=== PATIENT | female | born 1970 | race Two or more races ===

== ENCOUNTER 2019-08-10 13:02 | Observation (INO) | payer SELFPAY ==
--- NOTE | 2019-08-10 13:20 | ED ---
Abdominal Pain/Female - HPI Summary HPI Summary: Patient is a 49 y/o F presenting to the ED for a chief complaint of left flank pain that radiates to the lower back. Patient is present with her daughter. Patient reports that the left flank pain began around 17:00 on 08/09/19. She rates her flank pain as 10/10 in severity. For the last 3 days, she also notes hematuria. Patient complains of nausea and believes she has had a fever. Any aggravating or alleviating factors are denied. Patient admits tobacco and alcohol use, but denies drug use. PMHx is significant for nephrolithiasis, but she denies a history of hypertension, hypercholesterolemia, or diabetes mellitus. PSHx is significant for appendectomy at which time she was told she had nephrolithiasis, but she is unsure how large the stone was at that time. FMHx is significant for hypertension and diabetes mellitus. She denies taking any medications. Allergies noted. - History of Current Complaint Chief Complaint: EDFlankPain Stated Complaint: BACK PAIN/CHILLS/VOMITING PER PT DAUGHTER Time Seen by Provider: 08/10/19 13:18 Hx Obtained From: Patient Onset/Duration: Sudden Onset, Lasting Hours, Still Present Timing: Constant Severity Initially: Severe Severity Currently: Severe Pain Intensity: 10 Pain Scale Used: 0-10 Numeric Location: Flank - Left Radiates: Yes Radiates to: Back - Lower Aggravating Factor(s): Nothing Alleviating Factor(s): Nothing Associated Signs and Symptoms: Positive: Fever - In vitals, 97.8 F, Back Pain - Lower that radiates from the left flank, Urinary Symptoms - Positive hematuria, Nausea Allergies/Adverse Reactions: Allergies Allergy/AdvReac Type Severity Reaction Status Date / Time No Known Allergies Allergy Verified 08/10/19 13:06 Home Medications: Home Medications NK [No Home Medications Reported] 08/10/19 [History Confirmed 08/10/19] PMH/Surg Hx/FS Hx/Imm Hx Previously Healthy: Yes Endocrine/Hematology History: Denies: Hx Diabetes Cardiovascular History: Denies: Hx Hypercholesterolemia, Hx Hypertension History: Reports: Hx Kidney Stones Sensory History: Denies: Hx Legally Blind, Hx Deafness Opthamlomology History: Denies: Hx Legally Blind EENT History: Denies: Hx Deafness - Surgical History Surgical History: Yes Surgery Procedure, Year, and Place: Appendectomy Infectious Disease History: No Infectious Disease History: Denies: Traveled Outside the [place] in Last 30 Days - Family History Known Family History: Positive: Hypertension, Diabetes - Social History Occupation: Unemployed Alcohol Use: Occasionally Hx Substance Use: No Substance Use Type: Reports: None Hx Tobacco Use: Yes Smoking Status (MU): Light Every Day Tobacco Smoker Type: Cigarettes Review of Systems Positive: Fever - In vitals, 97.8 F Positive: Abdominal Pain - Left flank, Nausea Positive: flank pain - Left, hematuria Positive: Myalgia - Lower back that radiates from the left flank All Other Systems Reviewed And Are Negative: Yes Physical Exam - Summary Physical Exam Summary: VITAL SIGNS: Reviewed. GENERAL: Patient is a well-developed and nourished female who is lying comfortable in the stretcher. Patient is not in any acute respiratory distress. HEAD AND FACE: Normocephalic and atraumatic. EYES: PERRLA, EOMI x 2, No injected conjunctiva. EARS: Hearing grossly intact. Ear canals and tympanic membranes are WNL. MOUTH: Oropharynx within normal limits. NECK: Supple, trachea is midline, no adenopathy, no JVD. CHEST: Symmetric, no tenderness at palpation. LUNGS: Clear to auscultation bilaterally. No wheezing or crackles. CVS: RRR, S1 and S2 present, no murmurs or gallops appreciated. ABDOMEN: Soft. No signs of distention. Positive bowel sounds. No rebound, no guarding, and no masses palpated. No abdominal bruit or pulsations.Left flank tenderness, CVA tenderness. EXTREMITIES: FROM in all major joints, no edema, no cyanosis or clubbing. NEURO: Alert and oriented x 3. No acute neurological deficits. Speech is normal. SKIN: Dry and warm. Triage Information Reviewed: Yes Vital Signs On Initial Exam: Initial Vitals Temp Pulse Resp BP Pulse Ox 97.8 F 77 16 130/99 99 08/10/19 13:03 08/10/19 13:03 08/10/19 13:03 08/10/19 13:03 08/10/19 13:03 Vital Signs Reviewed: Yes Procedures - Sedation Patient Received Moderate/Deep Sedation with Procedure: No Diagnostics - Vital Signs Vital Signs Temp Pulse Resp BP Pulse Ox 08/10/19 13:03 97.8 F 77 16 130/99 99 - Laboratory Result Diagrams: 08/10/19 14:07 08/10/19 14:07 Lab Statement: Any lab studies that have been ordered have been reviewed, and results considered in the medical decision making process. - Radiology Abdomen X-ray Radiology Interpretation Completed By: Radiologist Summary of Radiographic Findings: Abdomen X-ray IMPRESSION: Calculi overlying the left renal hilum. This is similar to that identified on recent CT. Reviewed by Dr. Petersen. - CT Abdomen/Pelvis CT CT Interpretation Completed By: Radiologist Summary of CT Findings: Abdomen/Pelvis CT IMPRESSION: Calculi in the left ureteropelvic junction measuring 0.8 x 0.9 cm with moderate left hydronephrosis. Right kidney shows no hydronephrosis. Reviewed by Dr. Petersen. Re-Evaluation - Re-Evaluation First Eval Re-Evaluation Time: 16:06 Change: Improved Comment: At 16:06, patient is feeling better and rates her current pain as 4-5/ 10 in severity. Abdominal Pain Fem Course/Dx - Course Course Of Treatment: Patient is a 49 y/o F presenting to the ED for a chief complaint of left flank pain that radiates to the lower back. Patient is present with her daughter. Patient reports that the left flank pain began around 17:00 on 08/09/19. She rates her flank pain as 10/10 in severity. For the last 3 days, she also notes hematuria. Patient complains of nausea and believes she has had a fever. Any aggravating or alleviating factors are denied. Patient admits tobacco and alcohol use, but denies drug use. PMHx is significant for nephrolithiasis, but she denies a history of hypertension, hypercholesterolemia, or diabetes mellitus. PSHx is significant for appendectomy at which time she was told she had nephrolithiasis, but she is unsure how large the stone was at that time. FMHx is significant for hypertension and diabetes mellitus. She denies taking any medications. Allergies noted. Blood work is without any significant abnormality except for glucose of 114, total protein of 6.3 and urinalysis is negative for UTI. Abdominal pelvic CT impression: Calculi in the left uteropelvic junction measuring 0.80.9 cm with moderate left hydronephrosis. The right kidney shows no hydronephrosis. In the ED course the patient was given IV fluids, Toradol for the pain, and 2 doses of morphine. The pain is still present. I discussed my physical exam findings and test results with Dr. Gordillo from and he stated he would consult with the patient. I discussed my physical exam findings and test results with Dr. Fang from the hospital services, and she will admit the patient to her services for further workup and management. The patient is hemodynamically stable, and alert and oriented 3. The patient will not be eating by mouth after midnight. - Diagnoses Provider Diagnoses: Renal colic, Nephrolithiasis - Provider Notifications Discussed Care Of Patient With: Arcaeli Fang - At 17:25, Dr. Araceli Fang reviewed the patients case and agrees to admit the patient to [facility]. Time Discussed With Above Provider: 17:25 Instructed by Provider To: Admit As Inpatient Discharge ED - Sign-Out/Discharge Documenting (check all that apply): Patient Departure - Admit - Discharge Plan Condition: Stable Disposition: ADMITTED TO [facility] Referrals: Care [facility] [Outside] - Billing Disposition and Condition Condition: STABLE Disposition: Admitted to [facility] - Attestation Statements Document Initiated by Scribe: Yes Documenting Scribe: Marifer Edmonds Provider For Whom Scribe is Documenting (Include Credential): Himanshu Petersen MD Scribe Attestation: IMarifer, scribed for Himanshu Petersen MD on 08/10/19 at 1823. Scribe Documentation Reviewed: Yes Provider Attestation: The documentation as recorded by the Marifer rolon accurately reflects the service I personally performed and the decisions made by me, Himanshu Petersen MD Status of Scribe Document: Viewed
[2019-08-10] MEDS ORDERED: Ketorolac INJ* 30 MG/ML 1 ML VIAL IV ONE (13:29)
[2019-08-10] MEDS ORDERED: NS 0.9% 1000 ML** 1,000 ML IV ONE (13:29)
[2019-08-10] MEDS ORDERED: Ondansetron INJ* 2 MG/ML VIAL IV ONE (13:29)
[2019-08-10 14:15] LABS: ABS Basophils 0.1 10^3/ul (0-0.2); ABS Lymphocytes 1.1 10^3/ul (1.0-4.8); ABS Monocytes 0.4 10^3/ul (0-0.8); ABS Neutrophils 7.7 10^3/ul (1.5-7.7); Eosinophil % 0.5 %; Hematocrit 40 % (35-47); Hemoglobin 13.6 g/dL (12.0-16.0); Lymphocyte % 11.9 %; Mean Corpuscular HGB Conc 34 g/dL (31-36); Mean Corpuscular Hemoglobin 30 pg (27-31); Mean Corpuscular Volume 90 fL (80-97); Mean Platelet Volume 9.4 fL (7.4-10.4); Platelet Count 234 10^3/uL (150-450); Red Cell Distribution Width 14 % (10-15); White Blood Count 9.4 10^3/uL (3.5-10.8)
[2019-08-10] MEDS ORDERED: Morphine 4 MG/ML VIAL (1 ml) 4 MG/ML VIAL IV ONE ×2 (14:26→16:06)
[2019-08-10 14:32] LABS: Albumin 3.9 g/dL (3.2-5.2); Albumin/Globulin Ratio 1.6 (1-3); BUN/Creatinine Ratio 29.9 (8-20); C Reactive Protein 1.48 mg/L (<8.01); Calcium 8.8 mg/dL (8.6-10.3); EGFR African American 96.8 (>60); Globulin 2.4 g/dL (2-4); Potassium 3.9 mmol/L (3.5-5.0); Total Bilirubin 0.4 mg/dL (0.2-1.0); Total Protein 6.3 g/dL (6.4-8.9)
[2019-08-10 14:43] LABS: Urine Appearance Turbid; Urine Bilirubin Negative (Negative); Urine Blood 2+ (Negative); Urine Color Yellow; Urine Glucose Negative (Negative); Urine Ketones Negative (Negative); Urine Nitrite Negative (Negative); Urine Protein Negative (Negative); Urine Specific Gravity 1.016 (1.010-1.030); Urine Urobilinogen Negative (Negative)
[2019-08-10 14:49] LABS: Urine Bacteria Absent (Absent); Urine Red Blood Cell 3+(>10/hpf) (Absent); Urine Squamous Epithelial Cell Present (Absent); Urine White Blood Cell Trace(0-5/hpf) (Absent)
[2019-08-10] MEDS ORDERED: Acetaminophen TAB* 325 MG PO PRN (18:07)
[2019-08-10] MEDS ORDERED: Senna TAB 8.6 mg* TAB PO PRN (18:07)
[2019-08-10] MEDS ORDERED: Morphine INJ* 2 MG/ML 1 ML SYRINGE (TWO MG - NEW SYRINGE VERSION) IV PRN (18:07)
[2019-08-10] MEDS ORDERED: Al Hydrox/Mg Hydrox/Simet LIQ* 30 ML UDC PO PRN (18:07)
[2019-08-10] MEDS ORDERED: oxyCODONE/Acetamin 5/325 MG* TAB PO PRN (18:07)
[2019-08-10] MEDS ORDERED: Ketorolac INJ* 30 MG/ML 1 ML VIAL IV PUSH PRN (18:14)
[2019-08-10] MEDS ORDERED: cefTRIAXone(*) 1 GM in NS 0.9% 50 ML* 50 ML IVPB STA (18:33)
[2019-08-10] MEDS: Tamsulosin CAP* 0.4 MG PO SCH (19:12)
[2019-08-10] MEDS: NS 0.9% 1000 ML** 1,000 ML IV SCH (20:25)
--- NOTE | 2019-08-10 20:51 | HP ---
HISTORY AND PHYSICAL: DATE OF ADMISSION: 08/10/19 ATTENDING PHYSICIAN: Dr. Angel.* (DICTATED BY MARY GRACE FIELDS) PRIMARY CARE PROVIDER: None. CHIEF COMPLAINT: Left flank pain and nausea. HISTORY OF PRESENT ILLNESS: Rhonda Hernandez is a 49-year-old female without significant past medical history, who presents to the emergency department today due to left flank pain x2 days with associated nausea. The patient has left low back pain that started yesterday, has been getting progressively worse. She is feeling nauseous today. Her pain feels minimally improved after administration of morphine in the emergency room as well as Toradol, however, still present. She was having nausea and this has improved greatly with Zofran. She additionally endorses a headache. Of note, the patient speaks only Persian and her neighbor is present for translation. The patient notes that she has never had an episode of this before. She had an incidental finding of nephrolithiasis when she had imaging before her appendicitis, however, never had symptoms of such. She does not take any medications daily or oral supplements. She has been having a headache; however , this has improved. She denies fever, chills, chest pain, difficulty breathing , vomiting, abdominal pain, hematuria, or dysuria. EMERGENCY DEPARTMENT COURSE: The patient arrived to the emergency department. Her vital signs were temperature 97.8 degrees Fahrenheit, pulse 77, respiratory rate 16, oxygen saturation 99% on room air, blood pressure 130/99. The patient received 30 mg IV Toradol, 4 mg of IV morphine on 2 occasions as well as 4 mg of IV Zofran and a liter bolus of normal saline. The patient's case was discussed with Dr. Gordillo and hospitalist were asked to evaluate the patient for admission. PAST MEDICAL HISTORY: None. PAST SURGICAL HISTORY: 1. Appendectomy. 2. Hysterectomy. HOME MEDICATIONS: None. ALLERGIES: None. FAMILY HISTORY: Her parents are both . She has no family history of diabetes, heart disease, or hypertension. The cause of of her parents is unclear. SOCIAL HISTORY: The patient is from [place]. She has been living in the for 2 months. She does not have a job or primary care provider. She denies alcohol use or drug use. She smokes 1 cigarette per week. Her boyfriend lives in the area and her neighbor, Regla Santillan, is her surrogate medical decision maker should she need one, phone #[phone]. DIAGNOSTIC STUDIES/LAB DATA: White blood cell count 9.4, hemoglobin 13.6, hematocrit 40, platelet count 234. Sodium 136, potassium 3.9, chloride 105, carbon dioxide 23, anion gap 8, BUN 23, creatinine 0.77, glucose 114. Unremarkable LFTs. Urine: +2 blood, +3 rbc's, present squamous epithelial cells , present urine yeast. CT abdomen and pelvis: Calculi in the left ureteropelvic junction measuring 0.8 x 0.9 cm with moderate left hydronephrosis. Right kidney shows no hydronephrosis. KUB x-ray, impression: Calculi overlying the left renal hilum. There is similar to that identified on the recent CT. ASSESSMENT AND PLAN: Rhonda Hernandez is a 49-year-old female without a significant past medical history, who presents to the emergency department due to left flank pain and found to have a nephrolithiasis. The patient will be admitted OBV for: 1. Left renal calculus with hydronephrosis. The patient has associated moderate left hydronephrosis; however, at this point, she does not have any associated kidney injury. I will be continuing to monitor this. She has no evidence of sepsis at this time as her vitals are stable and no leukocytosis. Her urine culture is pending. I will order ceftriaxone to be given now and daily for empiric coverage. Given her obstructing calculus, I will order Flomax and 100 cc/hour normal saline. Dr. Petersen in the emergency department discussed this case with Dr. Gordillo who recommended KUB today and tomorrow for comparison of any possible movement of the stone. If there is no movement, Dr. Gordillo plans for surgery tomorrow. The patient will be n.p.o. except for water and meds starting now. I will continue pain control for this patient and continue to monitor her vitals. 2. Hypertension. The patient was minimally hypertensive when she arrived to the emergency department. I suspect this is related to pain; this has improved. We will continue to monitor this. 3. FEN. The patient is n.p.o. except for meds as previously mentioned. Electrolytes are within normal limits and no need for repletion and hydration as previously mentioned. 4. DVT prophylaxis: The patient has a DVT risk score of 2. I will order subcu heparin and I have ordered morning heparin tomorrow to be held given that Dr. Gordillo will be taking the patient to the OR. 5. Code status: The patient is full code. EARLY DISCHARGE PLANNING: The patient should be set up with [facility] followup as she has no local PCP due to her moving here recently in the last 2 months. This case has been reviewed by my attending physician, Dr. Tonie Angel and she agrees with this plan. TIME SPENT: Time spent on this admission approximately 45 minutes, approximately half of the time was spent at bedside evaluating the patient and discussing the plan of care. MARY GRACE FIELDS [id number]/CPS #: [id number] MTDD
[2019-08-10] MEDS: Heparin VIAL(*) 5000 UNITS/ML VIAL (FIVE THOUSAND) SUBCUT SCH (21:03)
[2019-08-10] MEDS: Ondansetron INJ* 2 MG/ML VIAL IV PRN (21:44)
[2019-08-11] MEDS: Heparin VIAL(*) 5000 UNITS/ML VIAL (FIVE THOUSAND) SUBCUT SCH (04:19)
[2019-08-11 06:23] LABS: ABS Eosinophils 0.1 10^3/ul (0-0.6); ABS Lymphocytes 1.1 10^3/ul (1.0-4.8); ABS Monocytes 0.7 10^3/ul (0-0.8); ABS Neutrophils 6.8 10^3/ul (1.5-7.7); Eosinophil % 0.8 %; Hematocrit 39 % (35-47); Hemoglobin 13.4 g/dL (12.0-16.0); Mean Corpuscular HGB Conc 34 g/dL (31-36); Mean Corpuscular Hemoglobin 31 pg (27-31); Mean Corpuscular Volume 89 fL (80-97); Mean Platelet Volume 10.2 fL (7.4-10.4); Platelet Count 210 10^3/uL (150-450); Red Blood Count 4.38 10^6 /uL (3.70-4.87); Red Cell Distribution Width 14 % (10-15); White Blood Count 8.8 10^3/uL (3.5-10.8)
[2019-08-11 06:40] LABS: BUN/Creatinine Ratio 20.9 (8-20); Calcium 8.6 mg/dL (8.6-10.3); EGFR African American 79.8 (>60); Potassium 3.9 mmol/L (3.5-5.0)
[2019-08-11] MEDS: NS 0.9% 1000 ML** 1,000 ML IV SCH (06:48)
[2019-08-11] MEDS ORDERED: Iohexol 180 (CONTRAST) 10 ML SDV IV ONE (07:16)
[2019-08-11] MEDS ORDERED: Midazolam* 1 MG/ML 2 ML VIAL (2 MG) ONE (07:35)
[2019-08-11] MEDS ORDERED: fentaNYL* 50 MCG/ML 2 ML VIAL (100 MCG VIAL) ONE ×2 (07:35→09:34)
[2019-08-11] MEDS ORDERED: Metoclopramide IV* 5 MG/ML 2 ML VIAL ONE (07:36)
[2019-08-11] MEDS ORDERED: Ondansetron INJ* 2 MG/ML VIAL ONE ×3 (07:36→10:28)
[2019-08-11] MEDS ORDERED: Lidocaine 2% PF * 5 ML VIAL ONE (07:36)
[2019-08-11] MEDS ORDERED: Propofol* 10 MG/ML 20 ML BTL ONE ×2 (07:36→09:39)
[2019-08-11] MEDS ORDERED: Dexamethasone IV* 4 MG/ML 1 ML (4 MG) ONE (07:36)
[2019-08-11] MEDS ORDERED: Sodium Citrate/Citric Acid* 15 ML UDC PO ONE (07:57)
[2019-08-11] MEDS ORDERED: Sodium Citrate/Citric Acid* 15 ML UDC ONE (07:58)
[2019-08-11] MEDS ORDERED: Naloxone* 0.4 MG/ML 1 ML VIAL IV PRN (07:58)
[2019-08-11] MEDS ORDERED: DiMENhydriNATE IV* 50 MG/ML VIAL IV PUSH PRN (07:58)
[2019-08-11] MEDS ORDERED: KETAMINE HCL* 50 MG/ML 10 ML VIAL ONE (08:13)
[2019-08-11] MEDS ORDERED: Furosemide IV* 10 MG/ML 2 ML VIAL (20 MG) ONE ×2 (08:25→09:56)
[2019-08-11] MEDS ORDERED: Gentamicin ADULT (*) 160 MG in NS 0.9% 100 ML* 100 ML IVPB ONE (09:00)
[2019-08-11] MEDS: fentaNYL* 50 MCG/ML 2 ML VIAL (100 MCG VIAL) IV PRN ×2 (09:35→09:44)
[2019-08-11] MEDS: Ondansetron INJ* 2 MG/ML VIAL IV PRN (09:41)
[2019-08-11] MEDS ORDERED: DiMENhydriNATE IV* 50 MG/ML VIAL ONE (10:02)
[2019-08-11] MEDS ORDERED: Phenylephrine 40 MCG/ML SYRINGE ONE (10:28)
--- NOTE | 2019-08-11 11:22 | OP ---
CC: Dr. Araceli Fang * DATE OF OPERATION: 08/11/19 - ROOM #415 DATE OF : 72 SURGEON: Dr. Gordillo. ANESTHESIOLOGIST: General. ANESTHESIA: Dr. Salgado. PRE-OP DIAGNOSES: 1. Left hydronephrosis. 2. Obstructing calculus, left ureteropelvic junction. POST-OP DIAGNOSES: 1. Left hydronephrosis. 2. Obstructing calculus, left ureteropelvic junction. OPERATIVE PROCEDURE: 1. Shockwave lithotripsy, left ureteropelvic junction calculus. 2. Cystoscopy, left retrograde and left stent insertion. INDICATIONS: Rhonda Hernandez is a 49-year-old lady who presented to the emergency room with left flank pain. She was noted to have a large obstructing calculus at the left ureteropelvic junction. She had to be admitted for pain control and is now being brought in for shockwave lithotripsy and left stent insertion. OPERATIVE FINDINGS: Approximately 9 to 10 mm calculus, left ureteropelvic junction with left hydronephrosis. COMPLICATIONS: None. POSTOPERATIVE CONDITION: Stable. STENTS USED: A 7-Burmese stent, left ureter. DESCRIPTION OF PROCEDURE: After induction of general anesthesia, the patient was placed on the lithotripsy table in supine position. The calculus, which was at the left ureteropelvic junction, was easily identified on fluoroscopy. Shock -wave lithotripsy was commenced at a rate of 60 shocks per minute. Periodic imaging revealed adequate localization and fragmentation and a total of 1400 shocks were administered. Next, the patient was placed in dorsal lithotomy position and cystoscopy was performed. A guidewire was introduced into the left ureter. Retrograde pyelogram revealed left hydronephrosis and a 7-Burmese stent was positioned under fluoroscopy with good proximal and distal positioning obtained. The bladder was emptied. The patient tolerated the procedure satisfactorily and was transferred back to the recovery area in stable condition. [id number]/[facility] #: [id number] EFREN
[2019-08-11 11:30] VITALS: BP 125/73
[2019-08-11] MEDS: Tamsulosin CAP* 0.4 MG PO SCH (11:46)
[2019-08-11] MEDS ORDERED: cefTRIAXone(*) 1 GM in NS 0.9% 50 ML* 50 ML IVPB SCH (17:00)
--- NOTE | 2019-08-12 04:11 | DS ---
CC: Dr. Gordillo * DISCHARGE SUMMARY: DATE OF ADMISSION: 08/10/19 DATE OF DISCHARGE: 08/11/19 PROVIDER: MARY GRACE Jacobsen ATTENDING PHYSICIAN WHILE IN THE HOSPITAL: Tonie Angel MD * (dictated by MARY GRACE Jacobsen) PRIMARY CARE PROVIDER: None. CONSULTING SPECIALIST: Dr. Gordillo. PRIMARY DIAGNOSIS: Left nephrolithiasis with associated left hydronephrosis, status post left ureteral stent placement and lithotripsy. SECONDARY DIAGNOSES: None. PERTINENT STUDIES/LAB DATA: Creatinine on day of admission 0.77, creatinine on day of discharge 0.91, BUN on day of admission 23, BUN on day of discharge 19. Urine culture negative. Pertinent studies: Abdomen and pelvis CT on 08/10/19, calculi in the left ureteropelvic junction measuring 0.9 x 0.8 cm with moderate left hydronephrosis. Right kidney shows no hydronephrosis. Abdomen x-ray on day of discharge, left nephrolithiasis with a left ureteral stent. Abdomen x-ray on , calculi overlying the left renal hilum. HISTORY OF PRESENT ILLNESS/HOSPITAL COURSE: Rhonda Hernandez is a 49-year-old female without a significant past medical history who presented to the emergency department due to left-sided flank pain and nausea. For further details, please see the history and physical written by myself on 08/10/19. The patient was found to have left-sided nephrolithiasis with associated left hydronephrosis. Dr. Gordillo was consulted and he saw the patient in consultation. The patient was started on empiric ceftriaxone as well as IV hydration and Flomax. Due to the size of the stone, Dr. Gordillo took the patient to the OR for lithotripsy and due to the hydronephrosis, ureteral stent was placed. The patient is new to the country and is Nepali speaking only and is uninsured and Social Work was involved in the case for these reasons and overall , the patient remained quite stable during the hospital stay. After procedure with Dr. Gordillo, her pain was overall resolved. She did have some nausea, which resolved and she was agreeable and safe for discharge. She was afebrile during the entire hospital stay and she had no leukocytosis and did not develop ANASTACIO. PHYSICAL EXAM ON DAY OF DISCHARGE: General: Middle-aged female, lying in hospital bed, appearing comfortable, in no acute distress after procedure. Head: Normocephalic, atraumatic. Eyes: PERRL. Sclerae anicteric. ENT: Mucous membranes moist. Cardio: No edema. Normal capillary refill. Abdomen: Soft, nontender, nondistended. Neuro: The patient is alert and oriented x3. No focal deficits. Able to move all extremities. Skin: Warm, dry, and intact. DISCHARGE PLAN: Diet: Regular unrestricted diet. Activity: The patient should avoid heavy lifting for the next several days until followup with Dr. Gordillo. Discharge plan: The patient should be following up with Dr. Gordillo in 1 week. I did provide phone number for [facility] if she needs to establish primary care in this area. She otherwise has no medical problems. I did discuss with her that a small amount of blood in the urine is expected for the next couple days after this procedure. I did advise her to take Tylenol for pain control if needed. I advised her to return to the emergency department should she experience severe abdominal pain, back pain, fever, chills, significant blood in the urine, or blood in the urine that continues past time of the followup appointment with Dr. Gordillo. She should maintain good oral hydration as well. I did discuss these discharge instructions with the patient and provided written instructions in her [place] language per my translation, though she did have a friend, an Polish speaking friend, available for translation. DISCHARGE MEDICATIONS: 1. Bactrim double strength 1 tab p.o. b.i.d. x3 days. 2. Tylenol 650 mg p.o. q.4 hours p.r.n. pain. CONDITION ON DISCHARGE: Stable. DISPOSITION: Home. TIME SPENT: Approximately 45 minutes were spent on this discharge, more than half of this time was spent at bedside evaluating the patient, discussing the plan of care. MARY GRACE JACOBSEN [id number]/[facility] #: [id number] MTDD
== END 2019-08-11 13:45 | disposition home or self-care (01) ==
LOC: ED 13:02 → MED 18:07
PROVIDERS: ADMIT Internal Medicine; ATTEND Internal Medicine
DX: N13.2 Hydronephrosis with renal and ureteral calculous obstruction (principal); R11.0 Nausea; M54.5 Low back pain; Z87.442 Personal history of urinary calculi; F17.210 Nicotine dependence, cigarettes, uncomplicated; R10.84 Generalized abdominal pain
CPT/HCPCS: 36415; 74018; 74176; 80048; 80053; 81003; 81015; 83690; 85025; 86140; 87086; 96361; 96365; 96372; 96375; 96376; 99284; A9270-GY; G0378; J0696; J1100; J1240; J1580; J1644; J1885; J1940; J2250; J2270; J2405; J2704; J2765; J3010